=== PATIENT | male | born 1970 | race African-American/Black ===

== ENCOUNTER 2021-02-15 09:09 | Emergency (ER) | payer OTHER ==
[~2021-02-15] VITALS: Ht 180.3 cm; Wt 100.0 kg
[2021-02-15 09:12] VITALS: BP 166/111
[2021-02-15] MEDS ORDERED: VITAMINS (09:14)
[2021-02-15] MEDS ORDERED: IBUPROFEN 400MG TABLET PO ONE (10:00)
[2021-02-15] MEDS ORDERED: HYDR-4346 MT (10:57)
[2021-02-15] MEDS ORDERED: IBUP-2028 MT (10:57)
== END 2021-02-15 11:53 | disposition home or self-care (01) ==
LOC: ER 09:09
DX: S82.832A Other fracture of upper and lower end of left fibula, initial encounter for closed fracture (principal); R03.0 Elevated blood-pressure reading, without diagnosis of hypertension; X50.1XXA Overexertion from prolonged static or awkward postures, initial encounter; Y93.89 Activity, other specified; Y92.89 Other specified places as the place of occurrence of the external cause; Y99.0 Civilian activity done for income or pay; Z88.2 Allergy status to sulfonamides
CPT/HCPCS: 29515; 73610; 99283